=== PATIENT | male | born 1965 | race Caucasian/White ===

== ENCOUNTER → 2024-06-06 16:43 | Outpatient (REF) | payer OTHER, SELFPAY | LOC: HWRAD 16:43 | PROVIDERS: ATTENDING PHYSICIAN Nurse Practitioner; FAMILY PHYSICIAN Family Medicine | DX: M25.561 Pain in right knee (principal) | CPT/HCPCS: 73564 ==

== ENCOUNTER → 2024-11-26 09:03 | Outpatient (REF) | payer SELFPAY | LOC: HWRAD 09:03 | PROVIDERS: ATTENDING PHYSICIAN Family Medicine | DX: E78.2 Mixed hyperlipidemia (principal) | CPT/HCPCS: 75571 ==